=== PATIENT | female | born 1945 | race Two or more races ===

== ENCOUNTER 2022-08-14 19:34 | Emergency (ER) | payer MEDICARE, OTHER ==
[~2022-08-14] VITALS: Ht 165.1 cm; Wt 70.3 kg
--- NOTE | 2022-08-14 19:50 | NUR ---
BIBFAMIL FROM HOME C/O "SOB & SHAKINESS" SINCE LAST NIGHT. HAS NEW DOSE OF ANXIETY AND INSOMNIA MEDICATIONS. PATIENT IS AOX4, HUNGARIAN SPEAKING, ANXIOUS. PLACED COMFORTABLY IN BED. VITALS CHECKED. FAMILY AT BEDSIDE
[2022-08-14] MEDS ORDERED: LORAZEPAM 1 MG TABLET ONE (20:23)
[2022-08-14] MEDS ORDERED: LORAZEPAM 1 MG TABLET PO ONE (20:30)
--- NOTE | 2022-08-14 20:51 | NUR ---
Patient discharged to home in stable condition. Written and verbal after care instructions given. Patient verbalizes understanding of instruction.
[2022-08-14 20:52] VITALS: BP 127/79; TEMP 98.6
== END 2022-08-14 20:52 | disposition home or self-care (01) ==
LOC: ER 19:36
DX: F41.9 Anxiety disorder, unspecified (principal); E03.9 Hypothyroidism, unspecified; Z85.3 Personal history of malignant neoplasm of breast

== ENCOUNTER 2022-11-10 18:50 | Emergency (ER) | payer MEDICARE, OTHER ==
[~2022-11-10] VITALS: Ht 172.7 cm; Wt 85.3 kg
[2022-11-10 19:22] VITALS: BP 157/89; TEMP 100.9; O2SAT 95
== END 2022-11-10 21:13 | disposition left against medical advice (07) ==
LOC: ER 18:59
DX: M79.10 Myalgia, unspecified site (principal); Z53.21 Procedure and treatment not carried out due to patient leaving prior to being seen by health care provider

== ENCOUNTER 2024-10-05 16:50 | Emergency (ER) | payer MEDICAID, MEDICARE ==
[~2024-10-05] VITALS: Ht 167.6 cm; Wt 72.6 kg
[2024-10-05 17:46] LABS: PLATELET COUNT (AUTO) 316 K/uL (150-450); RED BLOOD CELL COUNT(AUTO) 4.67 MIL/uL (4.0-5.2); RED CELL DISTRIBUTION WIDTH 13.3 % (11.5-15.0); WHITE BLOOD COUNT (AUTO) 9.4 K/uL (4.3-11.0)
[2024-10-05 18:01] LABS: CALCIUM, SERUM 8.9 mg/dL (8.5-10.1); CREATININE 0.7 mg/dL (0.6-1.3); SODIUM SERUM 142.0 mmol/L (136-145); UREA NITROGEN, BLOOD 14.0 mg/dL (7-18)
[2024-10-05] MEDS ORDERED: KETOROLAC TROMETHAMINE 15 MG/ML VIAL ONE (18:01)
[2024-10-05] MEDS ORDERED: ONDANSETRON HCL/PF 4 MG/2 ML VIAL ONE (18:01)
[2024-10-05 18:07] LABS: ASPARTATE AMINOTRANSFERASE 16.0 U/L (15-37); TOTAL PROTEIN, SERUM 7.8 g/dL (6.4-8.2)
[2024-10-05] MEDS: IV NS 0.9% 1,000 ML BAG IV ONE (18:24)
[2024-10-05] MEDS: KETOROLAC TROMETHAMINE 15 MG/ML VIAL IV ONE (18:25)
[2024-10-05] MEDS: ONDANSETRON HCL/PF 4 MG/2 ML VIAL IVP ONE (18:25)
[2024-10-05] MEDS ORDERED: ONDA4TAB5 PO (19:44)
[2024-10-05] MEDS ORDERED: LOPE2CAP40 PO (19:44)
[2024-10-05 21:21] VITALS: BP 156/79; TEMP 98; O2SAT 99
== END 2024-10-05 21:21 | disposition home or self-care (01) ==
LOC: ER 17:54
DX: R10.84 Generalized abdominal pain (principal); R19.7 Diarrhea, unspecified; F41.9 Anxiety disorder, unspecified; E03.9 Hypothyroidism, unspecified; Z85.3 Personal history of malignant neoplasm of breast; Z88.5 Allergy status to narcotic agent; Z98.890 Other specified postprocedural states
CPT/HCPCS: 99285; 74176; 96374; 96361; 96375; 85025; 80048; 83690; 80076; 36415; J1885; J2405; J7030